=== PATIENT | female | born 1970 | race Caucasian/White ===

== ENCOUNTER 2017-04-15 11:01 | Emergency (ER) | payer BC, MEDICARE ==
[2017-04-15 11:45] VITALS: BP 134/66
--- NOTE | 2017-04-15 12:37 | UC ---
Lower Extremity/Ankle HPI - HPI Summary HPI Summary: complaint of pain in right foot in big toe the next day started getting pain in left toe area of swelling redness that is painful to toucn sometimes pain shoots up her leg heron trauma to the foot , no open wounds to her feet struggles with edema in her leg PCP Dr Vu - History of Current Complaint Chief Complaint: UCLowerExtremity Stated Complaint: LEFT FOOT PAIN Time Seen by Provider: 04/15/17 12:28 Hx Obtained From: Patient Hx Last Menstrual Period: 03/02 - Allergies/Home Medications Allergies/Adverse Reactions: Allergies Allergy/AdvReac Type Severity Reaction Status Date / Time Shellfish Allergy Allergy Severe Anaphylatic Verified 04/15/17 11:45 Shock bee venom Allergy Severe Anaphylatic Uncoded 04/15/17 11:45 Shock codiene Allergy Severe lethargic/s Uncoded 04/15/17 11:45 leepy Home Medications: Home Medications ALPRAZolam TAB* [Xanax TAB*] 0.5 mg PO TID PRN 04/15/17 [History Confirmed 04/15] Gabapentin CAP(*) [Neurontin 400 mg CAP(*)] 800 mg PO TID 04/15/17 [History Confirmed 04/15/17] PMH/Surg Hx/FS Hx/Imm Hx Previously Healthy: Yes - pre diabetic, chronic back pain Neurological History: CVA - 2013 Other History Of: Anticoagulant Therapy - Surgical History Surgical History: Yes Surgery Procedure, Year, and Place: Right knee torn meniscus repair 2007 - Family History Known Family History: Negative: Cardiac Disease, Hypertension, Diabetes - Social History Occupation: Disabled Lives: With Family Alcohol Use: None Substance Use Type: None Smoking Status (MU): Never Smoked Tobacco - Immunization History Most Recent Influenza Vaccination: 07/21/13 Most Recent Tetanus Shot: 10 years ago Most Recent Pneumonia Vaccination: NONE Review of Systems Constitutional: Negative Skin: Rash Eyes: Negative ENT: Negative Respiratory: Negative Cardiovascular: Negative Gastrointestinal: Negative Genitourinary: Negative Motor: Negative Neurovascular: Negative Musculoskeletal: Edema, Other: - left great toe pain Neurological: Negative Psychological: Negative All Other Systems Reviewed And Are Negative: Yes Physical Exam Triage Information Reviewed: Yes Appearance: No Pain Distress, Well-Nourished Vital Signs: Initial Vital Signs Temp 98.1 F 04/15/17 11:39 Pulse 62 04/15/17 11:39 Resp 18 04/15/17 11:39 BP 134/66 04/15/17 11:39 Pulse Ox 97 04/15/17 11:39 Vital Signs Reviewed: Yes Eyes: Positive: Conjunctiva Clear ENT: Positive: Pharynx normal, TMs normal Neck: Positive: No Lymphadenopathy Respiratory: Positive: Lungs clear, Normal breath sounds, No respiratory distress Cardiovascular: Positive: RRR, No Murmur, Pulses Normal Abdomen Description: Positive: Nontender, Soft Bowel Sounds: Positive: Present Musculoskeletal: Positive: Edema @ - BLE- 1+ edeam in both feet, Other: - LLE - area of erythema at base of great toe - hot and tender to touch Neurological: Positive: Alert Psychological Exam: Normal Skin Exam: Normal Lower Extremity Course/Dx - Course Course Of Treatment: exam completed. will treat as gout- no trauma no indication for infection- followup with PCP - Differential Dx/Diagnosis Differential Diagnosis/HQI/PQRI: Cellulitis, Gout, Infection Provider Diagnoses: gout Discharge - Discharge Plan Condition: Stable Disposition: HOME Prescriptions: Colchicine* [Colcrys*] 0.6 mg PO DAILY #3 tab Patient Education Materials: Gout (ED), Low Purine Diet (ED) Referrals: Non Staff,Doctor [Primary Care Provider] - Franky Vu CNM [Certified Nurse [employer] Developer] - Additional Instructions: Please start colcichine as directed Increase fluids and rest Please review your discharge instructions. If your symptoms do not improve please call your primary care provider or return to urgent care.
== END 2017-04-15 13:00 | disposition home or self-care (01) ==
LOC: UCCORT 11:01
DX: M10.9 Gout, unspecified (principal)
CPT/HCPCS: 99212; G0463